=== PATIENT | female | born 1995 | race Caucasian/White ===

== ENCOUNTER 2017-06-29 12:27 | Inpatient (IN) | payer MEDICAID, OTHER ==
[2017-06-29] VITALS (13 sets, daily range): BP systolic 135–176; BP diastolic 85–113; PULSE 82–96; RESP 18–33; TEMP 98.8; Ht 170.2 cm; Wt 69.7 kg
[~2017-06-29] VITALS: Ht 170.2 cm; Wt 69.7 kg
[~2017-06-29 12:27] MED LIST: ENAL5TAB PO
[2017-06-29] MEDS ORDERED: ONDANSETRON 4 MG INJ IV STA (13:16)
[2017-06-29] MEDS ORDERED: morphine 4 MG/ML VIAL IV STA (13:16)
[2017-06-29] MEDS ORDERED: SOD CHLORIDE 0.9% 500 ML IV STA (13:16)
[2017-06-29 13:57] LABS: ADD UMIC YES; UR ASCORBIC ACID NEGATIVE (NEGATIVE); UR BACTERIA FEW /HPF (NONE SEEN); UR BILIRUBIN (Dip) NEGATIVE (NEGATIVE); UR BLOOD (Dip) 2+ mg/dL (NEGATIVE); UR CLARITY CLOUDY (CLEAR); UR COLOR YELLOW (YELLOW); UR GLUCOSE (Dip) NEGATIVE (NEGATIVE); UR KETONES (Dip) NEGATIVE (NEGATIVE); UR LEUKOCYTE ESTERASE (Dip) 1+ Leu/ul (NEGATIVE); UR NITRITE (Dip) NEGATIVE (NEGATIVE); UR RBC 4 /HPF (0-5); UR SQUAMOUS EPITHELIAL CELL MANY /HPF (FEW); UR TOTAL PROTEIN (Dip) 2+ mg/dl (NEGATIVE); UR UROBILINOGEN (Dip) NEGATIVE (NEGATIVE)
[2017-06-29 14:07] LABS: BASOPHILS % 0.1 % (0.0-2.0); EOSINOPHILS % 0.1 % (0.0-7.0); HEMATOCRIT 38.4 % (37.0-47.0); HEMOGLOBIN 12.6 g/dl (12.0-16.0); LYMPHOCYTES # 0.8 10^3/ul (0.8-2.9); LYMPHOCYTES % 5.5 % (18.0-55.0); MEAN CORPUSCULAR HEMOGLOBIN 27.8 pg (29.0-33.0); MEAN CORPUSCULAR HGB CONC 32.8 g/dl (32.0-37.0); MEAN CORPUSCULAR VOLUME 84.8 fl (72.0-104.0); MEAN PLATELET VOLUME 10.6 fl (7.4-10.4); MONOCYTE # 1.3 10^3/ul (0.3-0.9); MONOCYTES % 8.3 % (0.0-13.0); NEUTROPHIL # 13.1 10^3/ul (1.6-7.5); NEUTROPHILS % 85.5 % (30.0-74.0); PLATELET COUNT 189 10^3/UL (140-415); RED BLOOD COUNT 4.53 10^6/ul (4.20-5.40); RED CELL DISTRIBUTION WIDTH 12.7 % (11.5-14.5); WHITE BLOOD COUNT 15.3 10^3/ul (4.8-10.8)
[2017-06-29] MEDS ORDERED: HYDROmorphONE 1 MG/ML SYG IV STA (14:25)
[2017-06-29 14:28] LABS: ALBUMIN 4.8 g/dl (3.3-4.9); ALBUMIN/GLOBULIN RATIO 1.23; BILIRUBIN,INDIRECT 0.5 mg/dl (0-1.1); BILIRUBIN,TOTAL 0.5 mg/dl (0.2-1.3); CALCIUM 9.4 mg/dl (8.4-10.2); CREATININE 1.27 mg/dl (0.44-1.00); POTASSIUM 3.8 mmol/L (3.5-5.1); TOTAL PROTEIN 8.7 g/dl (6.1-8.1)
[2017-06-29] MEDS ORDERED: CEFTRIAXONE 1 GM/50 ML (PMX) 50 ML IVPB ONE (15:30)
--- NOTE | 2017-06-29 15:30 | RADRPT ---
PROCEDURE: CT abdomen and pelvis without intravenous contrast. CLINICAL INDICATION: Abdominal pain TECHNIQUE: CT of the abdomen/pelvis was performed utilizing axial images with reconstructions in s agittal and coronal planes. The administered radiation dose is CTDI 9.51 mGy, DLP 553.53 mGy-cm. One or more of the following dose reduction techniques were used: Automated exposure control, Adjustmen t of the mA and/or kV according to patient size, or Use of iterative reconstruction technique. COMPARISON: There are no similar studies submitted for comparison. FINDINGS: Lung bases: The lung bases are clear, except for mild posterior dependent atelectasis .The partially imaged heart is normal size without pericardial effusion. CT ABDOMEN: Evaluation of the abdominal viscera is limited without intravenous contrast. Gastrointestinal tract: There is no bowel obstruction. The cecum is low lying in the right lower janis drant/right pelvis and there is mild cecal wall thickening with adjacent inflammatory change. There is no pneumoperitoneum. Liver: The liver is mildly enlarged, measuring up to 18.8 cm at the right midclavicular line. The un enhanced hepatic attenuation is within normal limits. There is no evidence of intrahepatic biliary ductal dilatation. Gallbladder: The gallbladder is grossly unremarkable. Pancreas: The pancreas is grossly unremarkable. Spleen: The spleen is normal in size. 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 A partially exoph ytic 9 mm low attenuation lesion arising from the inferior pole the right kidney may represent a sma ll cyst, but is too small to definitively characterize. A punctate calcification is seen within the interpolar right kidney posteriorly. The left kidney is slightly large in size, measuring up to 10 .5 cm in length, likely compensatory given in the hypoplastic right kidney. There is no evidence of hydronephrosis. No left renal calcification is seen. Adrenal glands: The bilateral adrenal glands are unremarkable. Retroperitoneum: There is no retroperitoneal adenopathy.The aorta is normal in caliber. CT PELVIS: Pelvic organs: The uterus contains an intrauterine device and is not well evaluated without intraven ous contrast. In the right lower quadrant/adnexal region, there is a tubular shaped cystic structur e measuring 1.7 cm AP oblique x 1.5 cm TR oblique x 6.4 cm CC oblique and containing a densely calci fied structure measuring up to approximately 2.0 cm (series 3, image 138). There is diffuse edema/in flammatory change within the pelvis and within the lower abdominal mesentery. There is a small mode rate amount of pelvic free fluid measuring slightly higher than simple ascites in attenuation. There are increased number of prominent, but sub centimeter right lower quadrant/right pelvic lymph nodes. Bladder: The urinary bladder is under distended. There is mild diffuse bladder wall thickening whic h may be attributable to underdistension. However, a component of cystitis cannot be excluded. Osseous structures: No destructive lytic or blastic osseous lesion is identified. IMPRESSION: 1. Right lower quadrant/right adnexal fluid containing tubular shaped structure measuring up to 1.7 cm and containing a densely calcified structure which measures up to approximately 2.0 cm. There is mild wall thickening of a low lying cecum in the adjacent right lower quadrant. There is diffuse ed calli/inflammatory change within the pelvis and within the lower abdominal mesentery. There is a smal l to moderate amount of pelvic free fluid measuring slightly higher than simple ascites in attenuati on. Although this tubular structure cannot be definitively connected to the cecum, the findings are favored to represent a ruptured appendicitis with appendicolith. A ruptured right ovarian dermoid c yst is also a possibility, but considered less likely. Pelvic ultrasound may help clarify. 2. Hypoplastic right kidney, detailed above. 3. Mild hepatomegaly. 4. Above impression was discussed with JUANITA Santos ([facility]) via phone at 15:27 06/29/2017. RPTAT: EE Physician Radha Date Time Electronically viewed and signed by Physician Radha on 06/29/2017 15:30 LIVE/
[2017-06-29] MEDS ORDERED: SOD CHLORIDE 0.9% 1,000 ML IV STA (15:35)
[2017-06-29] MEDS ORDERED: IODIXANOL LOCM 100 ML BTL ONE (15:42)
[2017-06-29] MEDS ORDERED: SOD CHLORIDE 0.9% 100 ML ONE (15:42)
--- NOTE | 2017-06-29 16:28 | RADRPT ---
PROCEDURE: CT abdomen and pelvis with IV contrast CLINICAL INDICATION: Abdominal pain TECHNIQUE: Axial images were obtained through the abdomen and pelvis after the IV administration o f 90 cc Visipaque 320 IV contrast. Coronal and sagittal reconstructions were obtained. Automated ex posure control was utilized. DLP = 409.8 mGy-cm. CTDiol= 6.8 mGy. One or more of the following post reduction techniques were used: - Automated exposure control. - Adjustment of the mA and/or Kv according to patient's size. - Use of iterative reconstruction technique COMPARISON: Noncontrast CT June 29, 2017 at 02:16 p.m. FINDINGS: Dependent, subsegmental atelectasis is noted in the visualized lower lungs. Heart size is within no rmal limits. The liver, gallbladder, pancreas, spleen and adrenals are unremarkable. The right kidney is small and atrophic appearing. Multiple small cysts are identified in the right kidney. The kidneys demonstrate symmetric enhancement. No obstructive uropathy is identified. The bladder is filled with a [id number]-[id number] amount of urine. T-shaped IUD is identified in the endometrium, but appears low-lying and rotated. Air and stool are seen scattered within the colon. A 1.9 cm in diameter tubular, fluid-filled stru cture is seen adjacent to the base of the cecum and contains a large calcification. Fat stranding a nd inflammatory change is seen surrounding this structure. A 1.8 cm rim enhancing cystic structure is identified in the right adnexa. Small to moderate amount of free fluid is identified in the post erior mid and lower pelvis. No dilated loops of small bowel are observed. The stomach and duodenum are unremarkable. No intra-abdominal or pelvic lymphadenopathy is observed. The arterial vasculature demonstrates a n ormal appearance. Osseous structures are intact and normal-appearing. Subcutaneous and muscular soft tissues surround ing the abdomen and pelvis are unremarkable. IMPRESSION: 1.9 cm in diameter fluid filled, tubular structure containing a large calcification adjacent to the base of the cecum with a large amount of surrounding inflammatory change. Findings are compatible w ith appendicitis. The connection of the appendix to the base of the cecum remains poorly visualized and is likely decompressed due to its position above the level of the obstructing appendicolith. 1.8 cm rim enhancing cystic structure in the right adnexa, adjacent to the dilated appendix. This c ould reflect a right ovarian cyst. A small abscess secondary to ruptured appendicitis cannot defini tely be excluded. Further characterization with pelvic ultrasound could be helpful. Small to moderate amount of free fluid in the mid and lower pelvis. IUD in the endometrial canal. The IUD appears low lying and rotated. Further characterization with pelvic ultrasound should be considered. RPTAT: AA .Geovany Weems MD, MD Date Time Electronically viewed and signed by .Geovany Weems MD, on 06/29/2017 16:27 .P/
--- NOTE | 2017-06-29 16:45 | ERA ---
ER Documentation Chief Complaint Date/Time DATE: 06/29/17 TIME: 16:41 Chief Complaint abdominal pain x 2 days HPI Patient is a 21-year-old female who presents with abdominal pain that she has had for 2 days. The pain started in the epigastric region but has migrated downwards to the right lower quadrant. She also admits to dysuria but denies hematuria and increased urinary frequency. Denies any change with food. The pain is 10 out of 10 and sharp. She denies fever. Denies any nausea or vomiting or diarrhea. Last menstrual period was 2 weeks ago. She states she has a history of hypertension but no longer takes medications for the high blood pressure. She denies any past surgeries. ROS All systems reviewed and are negative except as per history of present illness. Medications Home Meds Reported Medications Enalapril Maleate* (Enalapril Maleate*) 5 Mg Tablet, 5 MG PO BID 07/05/13 Allergies Allergies: Coded Allergies: No Known Allergy (Unverified , 07/05/13) PMhx/Soc History of Surgery: No Anesthesia Reaction: No Hx Neurological Disorder: No Hx Respiratory Disorders: No Hx Cardiac Disorders: No Hx Psychiatric Problems: No Hx Miscellaneous Medical Probl: Yes (HTN) Hx Alcohol Use: No Hx Substance Use: No Hx Tobacco Use: No Smoking Status: Never smoker FmHx Family History: No diabetes Physical Exam Vitals Vital Signs Date Time Temp Pulse Resp B/P Pulse Ox O2 Delivery O2 Flow Rate FiO2 06/29/17 15:08 97.9 72 18 135/80 100 Room Air 06/29/17 14:26 80 20 177/116 98 Room Air 06/29/17 12:36 99.7 122 18 168/122 99 Physical Exam INITIAL VITAL SIGNS: Reviewed by me GENERAL: Awake, alert and oriented x 4, well appearing, nontoxic, speaking in full sentences. No acute distress HEAD: Atraumatic EYES: EOMI. PERRL. NECK: Supple. No masses. Full range of motion. No meningismus. No midline tenderness. RESPIRATORY: Clear to auscultation bilaterally. Symmetric chest wall rise. No wheezing or rales. No accessory muscle use. CV: Regular rate and rhythm. No murmurs, rubs, or gallops. ABDOMEN: Soft, non-distended. . Negative [place]. Positive McBurneys point tenderness. No CVA tenderness bilaterally. No guarding. No rebound. : Deffered. Result Diagram: 06/29/17 1350 06/29/17 1350 Results 24 hrs Laboratory Tests Test 06/29/17 13:28 06/29/17 13:50 Urine Color YELLOW Urine Clarity CLOUDY Urine pH 6.0 Urine Specific [place] 1.020 Urine Ketones NEGATIVEmg/dL Urine Nitrite NEGATIVEmg/dL Urine Bilirubin NEGATIVEmg/dL Urine Urobilinogen NEGATIVEmg/dL Urine Leukocyte Esterase 1+Rita/ul Urine Microscopic RBC 4/HPF Urine Microscopic WBC 22/HPF Urine Squamous Epithelial Cells MANY/HPF Urine Bacteria FEW/HPF Urine Hemoglobin 2+mg/dL Urine Glucose NEGATIVEmg/dL Urine Total Protein 2+mg/dl White Blood Count 15.310^3/ul Red Blood Count 4.5310^6/ul Hemoglobin 12.6g/dl Hematocrit 38.4% Mean Corpuscular Volume 84.8fl Mean Corpuscular Hemoglobin 27.8pg Mean Corpuscular Hemoglobin Concent 32.8g/dl Red Cell Distribution Width 12.7% Platelet Count 70179^3/UL Mean Platelet Volume 10.6fl Neutrophils % 85.5% Lymphocytes % 5.5% Monocytes % 8.3% Eosinophils % 0.1% Basophils % 0.1% Nucleated Red Blood Cells % 0.0/100WBC Neutrophils # 13.110^3/ul Lymphocytes # 0.810^3/ul Monocytes # 1.310^3/ul Eosinophils # 0.010^3/ul Basophils # 0.010^3/ul Nucleated Red Blood Cells # 0.010^3/ul Sodium Level 143mmol/L Potassium Level 3.8mmol/L Chloride Level 100mmol/L Carbon Dioxide Level 26mmol/L Anion Gap 21 Blood Urea Nitrogen 15mg/dl Creatinine 1.27mg/dl Glucose Level 97mg/dl Calcium Level 9.4mg/dl Total Bilirubin 0.5mg/dl Direct Bilirubin 0.00mg/dl Indirect Bilirubin 0.5mg/dl Aspartate Amino Transf (AST/SGOT) 19IU/L Alanine Aminotransferase (ALT/SGPT) 22IU/L Alkaline Phosphatase 78IU/L Total Protein 8.7g/dl Albumin 4.8g/dl Globulin 3.90g/dl Albumin/Globulin Ratio 1.23 Lipase 26U/L Current Medications Medications (Trade) Dose Ordered Sig/Precious Route PRN Reason Start Time Stop Time Status Last Admin Dose Admin Sodium Chloride (NS) 500 ml @ 500 mls/hr Q1H STAT IV 06/29/17 13:16 06/29/17 14:15 DC 06/29/17 13:40 Morphine Sulfate (morphine) 4 mg ONCE STAT IV 06/29/17 13:16 06/29/17 13:17 DC 06/29/17 13:39 Ondansetron HCl (Zofran Inj) 4 mg ONCE STAT IV 06/29/17 13:16 06/29/17 13:17 DC 06/29/17 13:39 Clonidine (Catapres) 0.1 mg ONCE ONCE PO 06/29/17 13:30 06/29/17 13:31 DC 06/29/17 13:52 Hydromorphone HCl 1 mg 1 mg ONCE STAT IV 06/29/17 14:25 06/29/17 14:26 DC 06/29/17 14:31 Ceftriaxone Sodium 50 ml @ 100 mls/hr ONCE ONCE IVPB 06/29/17 15:30 06/29/17 15:59 DC 06/29/17 15:55 Sodium Chloride (NS) 1,000 ml @ 1,000 mls/hr Q1H STAT IV 06/29/17 15:35 06/29/17 16:34 DC 06/29/17 15:55 IV Flush 10 ml 10 ml STK-MED ONCE .ROUTE 06/29/17 15:42 06/29/17 15:43 DC Sodium Chloride (NS) 100 ml @ ud STK-MED ONCE .ROUTE 06/29/17 15:42 06/29/17 15:43 DC Iodixanol (Visipaque Locm) 100 ml STK-MED ONCE .ROUTE 06/29/17 15:42 06/29/17 15:43 DC Procedures/MDM This is a 21-year-old female who has right lower quadrant tenderness. The differential diagnosis includes but is not limited to appendicitis, cholelithiasis, cholecystitis, pancreatitis, hepatitis, gastritis, peptic ulcer disease, bowel obstruction, diverticulitis, renal disease including stones, torsion, AAA, pyelonephritis, and others. She has temperature of 99.7 and is tachycardic at 122. She also has elevated blood pressure 168/122. Her pain was controlled with IV morphine and Zofran and then later Dilaudid. She has elevated white blood cell count greater than 15 and her urine shows evidence of urinary tract infection. Creatinine is also elevated 1.27. I reviewed these findings with Dr. Ríos who recommended giving the patient Rocephin which she was given. CT scan shows evidence of appendicitis. Patient was started on Flagyl and I informed Dr. Ríos regarding the findings. Patient will be admitted. Departure Diagnosis: Primary Impression: Appendicitis Additional Impressions: Urinary tract infection Hypertensive urgency Condition: Serious DARRON BARAJAS PA-C Jun 29, 2017 16:45
--- NOTE | 2017-06-29 17:03 | EN ---
Date/Time of Note Date/Time of Note DATE: 06/29/17 TIME: 17:03 ER Progress Note I have seen and evaluated this patient with ourr physician financial administrative assistant. This patient is suffering from appendicitis with no signs of a ruptured appendix on CT of the abdomen and pelvis. The patient was given Rocephin and Flagyl here in the emergency room. I have contacted our admitting physician, Dr. Liu who accepts this patient. This patient will be taken to the operating room by our general surgeon Dr. Yanez. Critical Care: Time: 34 minutes Treatments/Evaluations: Close monitoring and treatment of unstable vital signs, cardiorespiratory, and neurologic status, while maintaining tight balance of fluid, respiratory, and cardiac interventions. SUKH SOMMER DO Jun 29, 2017 17:03
[2017-06-29] MEDS ORDERED: SOD CHLORIDE 0.9% 1,000 ML IV SCH (17:04)
--- NOTE | 2017-06-29 17:10 | RADRPT ---
PROCEDURE: US Pelvis CLINICAL INDICATION: pelvic pain, right side TECHNIQUE: Multiple sonographic images of the pelvis were obtained utilizing a transabdominal and endovaginal technique. The images were reviewed on a PACS workstation. COMPARISON: CT abdomen/pelvis from 06/29/2017 LMP: 06/14/2017 FINDINGS: The uterus measures 6.3 x 3.2 x 4.2 cm. The endometrial echo complex measures 6 mm in thickness. A n intrauterine device is noted with its superior margin at the level of the lower uterine segment. There is no evidence of an intrauterine or abnormal vascularity in the endometrium. The right ovary measures 4.1 x 2.9 x 2.8 cm. The left ovary measures 2.0 x 1.5 x 1.9 cm. There is no rmal vascular flow in both ovaries. There is a tubular cystic and solid structure in the right adnexa measuring up to 4.8 x 1.6 cm with an echogenic lesion with posterior acoustic shadowing seen within it measuring up to 1.9 cm. There is moderate free fluid in the pelvis. IMPRESSION: Tubular cystic and solid lesion in the right adnexa measuring up to 4.8 x 1.6 cm with a 1.9 cm echog enic lesion within it. Findings may represent hematosalpinx or pyosalpinx although rupture of a tub al ectopic is not excluded, particularly the presence of moderate pelvic free fluid. Claudy elation with a beta HCG level is recommended. Another possibility is that this lesion is an inflamed appendix with the echogenic lesion within it representing an appendicolith. Clinical correlation i s recommended. An intrauterine device is noted in a low position with its superior margin at the level of the lower uterine segment. These findings were discussed with Awais Degroot Pa-c) over the phone on 06/29/2017 at 5:09 PM . RPTAT: EE Physician Elaine Date Time Electronically viewed and signed by Wilber Savage Physician on 06/29/2017 17:09 /
[2017-06-29] MEDS ORDERED: ONDANSETRON 4 MG INJ IV PRN ×3 (17:30→19:30)
[2017-06-29] MEDS ORDERED: ACETAMINOPHEN 325 MG TAB PO PRN ×2 (17:30→19:30)
[2017-06-29] MEDS ORDERED: BUPIVACAINE 0.25%/EPI (SDV) 10 ML INJ ONE (17:30)
[2017-06-29] MEDS ORDERED: FENTAnyl 50 MCG/ML VIAL ONE (17:40)
[2017-06-29] MEDS ORDERED: MIDAZOLAM 1 MG/ML 2 ML INJ ONE (17:40)
[2017-06-29] MEDS ORDERED: PROPOFOL 20 ML ONE ×2 (17:40→19:06)
[2017-06-29] MEDS ORDERED: ROCURONIUM 50 MG INJ ONE (17:40)
[2017-06-29] MEDS ORDERED: ROPIVACAINE 0.2% 20 ML VIAL ONE (17:40)
--- NOTE | 2017-06-29 18:04 | CONS ---
Date/Time of Note Date/Time of Note DATE: 06/29/17 TIME: 18:00 Assessment/Plan Assessment/Plan Chief Complaint/Hosp Course 21-year-old female with clinical signs and symptoms most consistent with acute appendicitis. This has been confirmed via CT scan. * Continue nothing by mouth * Broad-spectrum intravenous antibiotics * IV fluid hydration * Pain control Definitive treatment will consist of laparoscopic appendectomy; possible open. This has been explained to the patient along with all risks and benefits of the procedure. She fully understands and is agreeable to the treatment plan as outlined. Informed consent will be obtained and the patient will be scheduled for laparoscopic appendectomy; possible open Problems: Consultation Date/Type/Reason Admit Date/Time Jun 29, 2017 at 17:04 Date of Consultation: Jun 29, 2017 Type of Consultation: GENERAL SURGERY Reason for Consultation Abdominal pain Hx of Present Illness The patient is a 21-year-old female with a history of hypertension who presented to the emergency room complaining of a 2 day history of abdominal pain. The pain initially occurred in the periumbilical area then migrated towards the right lower quadrant. She denies any nausea/vomiting, she does report constipation. There has been no fever/chills. She denies any similar episodes of pain in the past. She does report some dysuria. A 14 point review of systems was conducted and was negative except for that which is mentioned in HPI Past Medical History Medical History: hypertension Past Surgical History Past Surgical Hx: no surgical history Family History Significant Family History: no pertinent family hx Social History Alcohol Use: occasionally Smoking Status: Never smoker Exam/Review of Systems Vital Signs Vitals Vital Signs Date Time Temp Pulse Resp B/P Pulse Ox O2 Delivery O2 Flow Rate FiO2 06/29/17 17:33 98.8 88 19 158/98 100 Room Air Exam GENERAL: Awake, alert, oriented x 3. In moderate amount of discomfort secondary to abdominal pain. SKIN: No jaundice. HEENT: PERRLA, EOMI, No Scleral Icterus NECK: Supple without JVD CARDIOVASCULAR: S1S2, regular rate and rhythm. No murmurs appreciated. RESPIRATORY: Clear to auscultation bilaterally. ABDOMEN: Soft, bowel sounds present, there is slight distention of the lower abdomen. There is right lower quadrant tenderness to palpation with localized rebound. There is a positive Rovsing sign. EXTREMITIES: Free range of motion x 4. No cyanosis, edema, or clubbing. NEUROLOGIC: Cranial nerves II-XII are intact. Sensation is intact grossly. Results Result Diagram: 06/29/17 1350 06/29/17 1350 Results 24 hrs Laboratory Tests Test 06/29/17 13:28 06/29/17 13:50 Urine Color YELLOW Urine Clarity CLOUDY A Urine pH 6.0 Urine Specific [place] 1.020 Urine Ketones NEGATIVE Urine Nitrite NEGATIVE Urine Bilirubin NEGATIVE Urine Urobilinogen NEGATIVE Urine Leukocyte Esterase 1+ H Urine Microscopic RBC 4 Urine Microscopic WBC 22 H Urine Squamous Epithelial Cells MANY A Urine Bacteria FEW A Urine Hemoglobin 2+ H Urine Glucose NEGATIVE Urine Total Protein 2+ H White Blood Count 15.3 H Red Blood Count 4.53 Hemoglobin 12.6 Hematocrit 38.4 Mean Corpuscular Volume 84.8 Mean Corpuscular Hemoglobin 27.8 L Mean Corpuscular Hemoglobin Concent 32.8 Red Cell Distribution Width 12.7 Platelet Count 189 Mean Platelet Volume 10.6 H Neutrophils % 85.5 H Lymphocytes % 5.5 L Monocytes % 8.3 Eosinophils % 0.1 Basophils % 0.1 Nucleated Red Blood Cells % 0.0 Neutrophils # 13.1 H Lymphocytes # 0.8 Monocytes # 1.3 H Eosinophils # 0.0 Basophils # 0.0 Nucleated Red Blood Cells # 0.0 Sodium Level 143 Potassium Level 3.8 Chloride Level 100 Carbon Dioxide Level 26 Anion Gap 21 H Blood Urea Nitrogen 15 Creatinine 1.27 H Glucose Level 97 Calcium Level 9.4 Total Bilirubin 0.5 Direct Bilirubin 0.00 Indirect Bilirubin 0.5 Aspartate Amino Transf (AST/SGOT) 19 Alanine Aminotransferase (ALT/SGPT) 22 Alkaline Phosphatase 78 Total Protein 8.7 H Albumin 4.8 Globulin 3.90 H Albumin/Globulin Ratio 1.23 Lipase 26 Medications Medications Current Medications Sodium Chloride (NS) 1,000 ml @ 125 mls/hr Q8H IV ; Start 06/29/17 at 17:04; Stop 06/30/17 at 01:03 Procedures Procedures PROCEDURE: CT abdomen and pelvis without intravenous contrast. CLINICAL INDICATION: Abdominal pain TECHNIQUE: CT of the abdomen/pelvis was performed utilizing axial images with reconstructions in sagittal and coronal planes. The administered radiation dose is CTDI 9.51 mGy, DLP 553.53 mGy-cm. One or more of the following dose reduction techniques were used: Automated exposure control, Adjustment of the mA and/or kV according to patient size, or Use of iterative reconstruction technique. COMPARISON: There are no similar studies submitted for comparison. FINDINGS: Lung bases: The lung bases are clear, except for mild posterior dependent atelectasis .The partially imaged heart is normal size without pericardial effusion. CT ABDOMEN: Evaluation of the abdominal viscera is limited without intravenous contrast. Gastrointestinal tract: There is no bowel obstruction. The cecum is low lying in the right lower quadrant/right pelvis and there is mild cecal wall thickening with adjacent inflammatory change. There is no pneumoperitoneum. Liver: The liver is mildly enlarged, measuring up to 18.8 cm at the right midclavicular line. The unenhanced hepatic attenuation is within normal limits. There is no evidence of intrahepatic biliary ductal dilatation. Gallbladder: The gallbladder is grossly unremarkable. Pancreas: The pancreas is grossly unremarkable. Spleen: The spleen is normal in size. 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 A partially exophytic 9 mm low attenuation lesion arising from the inferior pole the right kidney may represent a small cyst, but is too small to definitively characterize. A punctate calcification is seen within the interpolar right kidney posteriorly. The left kidney is slightly large in size , measuring up to 10.5 cm in length, likely compensatory given in the hypoplastic right kidney. There is no evidence of hydronephrosis. No left renal calcification is seen. Adrenal glands: The bilateral adrenal glands are unremarkable. Retroperitoneum: There is no retroperitoneal adenopathy.The aorta is normal in caliber. CT PELVIS: Pelvic organs: The uterus contains an intrauterine device and is not well evaluated without intravenous contrast. In the right lower quadrant/adnexal region, there is a tubular shaped cystic structure measuring 1.7 cm AP oblique x 1.5 cm TR oblique x 6.4 cm CC oblique and containing a densely calcified structure measuring up to approximately 2.0 cm (series 3, image 138). There is diffuse edema/inflammatory change within the pelvis and within the lower abdominal mesentery. There is a small moderate amount of pelvic free fluid measuring slightly higher than simple ascites in attenuation. There are increased number of prominent, but sub centimeter right lower quadrant /right pelvic lymph nodes. Bladder: The urinary bladder is under distended. There is mild diffuse bladder wall thickening which may be attributable to underdistension. However, a component of cystitis cannot be excluded. Osseous structures: No destructive lytic or blastic osseous lesion is identified. IMPRESSION: 1. Right lower quadrant/right adnexal fluid containing tubular shaped structure measuring up to 1.7 cm and containing a densely calcified structure which measures up to approximately 2.0 cm. There is mild wall thickening of a low lying cecum in the adjacent right lower quadrant. There is diffuse edema/ inflammatory change within the pelvis and within the lower abdominal mesentery. There is a small to moderate amount of pelvic free fluid measuring slightly higher than simple ascites in attenuation. Although this tubular structure cannot be definitively connected to the cecum, the findings are favored to represent a ruptured appendicitis with appendicolith. A ruptured right ovarian dermoid cyst is also a possibility, but considered less likely. Pelvic ultrasound may help clarify. 2. Hypoplastic right kidney, detailed above. 3. Mild hepatomegaly. 4. Above impression was discussed with JUANITA Santos ([facility]) via phone at 15:27 06/29/2017. RPTAT: EE Physician Radha Date Time Electronically viewed and signed by Physician Radha on 06/29/2017 15: 30 RC/ CC: DARRON BARAJAS PA-C, MICHAEL A. MD Jun 29, 2017 18:04
[2017-06-29] MEDS ORDERED: LIDOCAINE 2% (SDV) 5 ML INJ ONE ×2 (18:59→19:06)
[2017-06-29] MEDS ORDERED: KETOROLAC 30 MG INJ IV PRN ×2 (19:00→19:30)
[2017-06-29] MEDS ORDERED: GLYCOPYRROLATE 0.4 MG INJ ONE (19:00)
[2017-06-29] MEDS ORDERED: DIPHENHYDRAMINE 50 MG INJ IV PRN (19:00)
[2017-06-29] MEDS ORDERED: morphine (1 MG/ML) 10ML SYRINGE IV PRN (19:00)
[2017-06-29] MEDS ORDERED: MEPERIDINE 25 MG INJ IV PRN (19:00)
[2017-06-29] MEDS ORDERED: NEOSTIGMINE 3 MG/3 ML SYRINGE ONE (19:00)
[2017-06-29] MEDS ORDERED: FENTAnyl 50 MCG/ML VIAL IV PRN (19:00)
[2017-06-29] MEDS ORDERED: ONDANSETRON 4 MG INJ ONE (19:05)
--- NOTE | 2017-06-29 19:14 | OPR ---
Date/Time of Note Date/Time of Note DATE: 06/29/17 TIME: 19:10 Operative Report Procedure Date: Jun 29, 2017 Preoperative Diagnosis Acute appendicitis with localized peritonitis Postoperative Diagnosis Acute appendicitis with localized peritonitis Operation Performed Laparoscopic appendectomy Surgeon: MARIAMA KINNEY MD Anesthesia: general Anesthesiologist: LUZMA HUITRON MD Estimated Blood Loss: minimal Specimens Appendix Complications: None Pt Condition Post Procedure: stable Disposition: PACU Indications Patient is a 21-year-old female who presented to the emergency room complaining of a 2 day history of right lower quadrant abdominal pain. The patient had clinical signs and symptoms of acute appendicitis which was confirmed via CT scan. She was therefore admitted, kept nothing by mouth, started on broad- spectrum intravenous antibiotics and scheduled for laparoscopic appendectomy; possible open as definitive treatment. All risks and benefits of the procedure including but not limited to: Wound infection, excessive bleeding, injury to intra-abdominal organs, conversion to open procedure etc. were explained to the patient in full detail. The patient fully understood and wished to proceed with the procedure. Informed consent was therefore obtained. Operative\Procedure Findings Nonperforated acute appendicitis Procedure Description The patient was brought to the operating room and placed supine on the operating table. Bilateral sequential compression devices were placed on both lower extremities. Patient had been given a dose of broad-spectrum intravenous antibiotics while in the emergency room. After the induction of smooth general endotracheal anesthesia the patient's abdomen was prepped and draped in the standard surgical fashion. A 5 mm incision was made in the inferior umbilicus and a Veress needle was used to access the intra-abdominal cavity atraumatically. Pneumoperitoneum was then obtained and the Veress needle was exchanged for a 5 mm trocar through which a 5 mm laparoscope was placed. Two further working ports were then placed, a 12 mm port in the midline suprapubic area and another 5 mm port midway between the suprapubic and umbilical port sites. All port sites were anesthetized with 0.25% Marcaine with epinephrine prior to incision. Diagnostic laparoscopy showed murky fluid in the patient's pelvis. This was suctioned out using a pool sucker. Attention was then turned towards the right lower quadrant. The omentum was draped over the cecum in the area of the appendix. It was bluntly dissected off swept up into the upper abdomen. The appendix was then identified adhered to the lateral pelvic sidewall. Using atraumatic graspers it was bluntly dissected off. Using atraumatic graspers, the appendix was grasped and retracted superiorly and medially exposing the mesoappendix. The appendix appeared erythematous and inflamed consistent with acute appendicitis, but not perforated. Using a [place] dissector a window was made between the mesoappendix and the appendiceal base. The appendix was then transected at its base using a firing of the laparoscopic ISABELLA stapler. Mesoappendix was then taken using the harmonic scalpel. Once completely free the appendix was placed in an Endo Catch bag and withdrawn through the suprapubic port site and passed off the field as specimen. Hemostasis was then inspected for and noted to be total. The abdomen was then irrigated with copious amounts of warm normal saline and the irrigant returned crystal clear. Pneumoperitoneum was then released and all trochars were withdrawn under direct vision. The fascia of the suprapubic port site was reapproximated using a 0 Vicryl suture in a [id number] fashion. The subcutaneous tissues were irrigated with more warm normal saline and further local anesthesia was applied around the skin of the incision sites. The skin was then reapproximated using 4-0 Monocryl sutures in subcuticular fashion. The incisions were cleaned and Dermabond was applied and the patient was awoken from anesthesia and transported to the recovery room in stable condition. All counts were correct at the end of the case x 2. MARIAMA KINNEY MD Jun 29, 2017 19:14
[2017-06-29] MEDS ORDERED: morphine 4 MG/ML VIAL IV PRN (19:30)
[2017-06-29] MEDS ORDERED: IBUPROFEN 600 MG TAB PO PRN (19:30)
[2017-06-29] MEDS ORDERED: HYDROCODONE/APAP (5/325) TAB PO PRN (19:30)
[2017-06-29] MEDS: DEXTROSE 5%-0.45% NACL 1,000 ML IV SCH (20:48)
[2017-06-29] MEDS: AMPICILLIN/SULB 3 GM/NS (PMX) 100 ML IVPB SCH (20:49)
[2017-06-29] MEDS: DOCUSATE SODIUM 100 MG CAP PO SCH (20:50)
[2017-06-30 02:00] VITALS: BP 133/85; RESP 18
[2017-06-30] MEDS: AMPICILLIN/SULB 3 GM/NS (PMX) 100 ML IVPB SCH ×3 (03:08→15:38)
[2017-06-30] MEDS: HYDROCODONE/APAP (5/325) TAB PO PRN ×3 (03:08→22:13)
[2017-06-30] MEDS: DEXTROSE 5%-0.45% NACL 1,000 ML IV SCH ×4 (03:30→19:30)
[2017-06-30 05:44] LABS: BASOPHILS % 0.2 % (0.0-2.0); HEMATOCRIT 33.4 % (37.0-47.0); HEMOGLOBIN 11.2 g/dl (12.0-16.0); LYMPHOCYTES # 0.9 10^3/ul (0.8-2.9); LYMPHOCYTES % 8.3 % (18.0-55.0); MEAN CORPUSCULAR HEMOGLOBIN 28.6 pg (29.0-33.0); MEAN CORPUSCULAR HGB CONC 33.5 g/dl (32.0-37.0); MEAN CORPUSCULAR VOLUME 85.2 fl (72.0-104.0); MEAN PLATELET VOLUME 10.4 fl (7.4-10.4); MONOCYTE # 0.8 10^3/ul (0.3-0.9); MONOCYTES % 6.8 % (0.0-13.0); NEUTROPHIL # 9.3 10^3/ul (1.6-7.5); NEUTROPHILS % 84.4 % (30.0-74.0); PLATELET COUNT 157 10^3/UL (140-415); RED BLOOD COUNT 3.92 10^6/ul (4.20-5.40); RED CELL DISTRIBUTION WIDTH 13.3 % (11.5-14.5)
[2017-06-30 06:35] LABS: CALCIUM 8.5 mg/dl (8.4-10.2); CREATININE 1.22 mg/dl (0.44-1.00); POTASSIUM 3.7 mmol/L (3.5-5.1)
--- NOTE | 2017-06-30 06:40 | HP ---
Date/Time of Note Date/Time of Note DATE: 06/30/17 TIME: 06:30 Assessment/Plan VTE Prophylaxis VTE Prophylaxis Intervention: SCD's Lines/Catheters IV Catheter Type (from Nrsg): Peripheral IV Assessment/Plan Assessment/Plan 1. Acute appendicitis with localized peritonitis - s/p laparoscopic appendicitis - cont abx and pain mgmt - advance diet as tolerated 2. Sepsis, as evidenced by leukocytosis and tachycardia: 2/2 above and UTI - cont abx f/u future results 3. UTI - cont abx. f/u urine cx result 4. KODAK: - IVF - Nephrology consult HPI/ROS Admit Date/Time Admit Date/Time Jun 29, 2017 at 17:04 Hx of Present Illness This is a 21 yo female with hx of HTN who presented to ER c/o abd pain x 2. She is now s/p Laparoscopic appendectomy and post-op diagnosis is Acute appendicitis with localized peritonitis. Except occasional pain, pt is feeling well. Denied chest pain or SOB. . PMH/Family/Social Past Medical History Medical History: hypertension Past Surgical History Past Surgical Hx: no surgical history Social History Alcohol Use: occasionally Smoking Status: Never smoker Drug Use: none Exam/Review of Systems Vital Signs Vitals Vital Signs Date Time Temp Pulse Resp B/P Pulse Ox O2 Delivery O2 Flow Rate FiO2 06/30/17 02:00 100.0 105 18 133/85 100 06/29/17 19:50 Room Air Intake and Output 06/29/17 06/29/17 06/30/17 15:00 23:00 07:00 Intake Total 1500 ml 200 ml Output Total 5 ml Balance 1495 ml 200 ml Exam Constitutional: alert, oriented, well developed Head: atraumatic, normocephalic Eyes: EOMI, PERRL Respiratory: clear to auscultation, normal air movement Cardiovascular: other (tachycadic with regular rhythm) Gastrointestinal: soft, surgical scars, tender Extremities: normal pulses Labs Result Diagram: 06/30/17 0510 06/29/17 1350 Medications Medications Current Medications Ampicillin Sodium/ Sulbactam Sodium (Unasyn 3gm/NS (Pmx)) 100 ml @ 200 mls/hr Q6H IVPB Last administered on 06/30/17t 03:08; Admin Dose 200 MLS/HR; Start 06/29 at 21:00; Stop 06/30/17 at 20:59 Morphine Sulfate (morphine) 2 mg Q4 PRN IV PAIN LEVEL 6-10 Last administered on 06/29/17 20:51; Admin Dose 2 MG; Start 06/29/17 at 19:30 Acetaminophen/ Hydrocodone Bitart ([place] (5/325)) 1 tab Q6H PRN PO PAIN LEVEL 6 -10; Start 06/29/17 at 19:30 Ketorolac Tromethamine (Toradol) 30 mg Q6H PRN IV PAIN; Start 06/29/17 at 19:30 ; Stop 07/02/17 at 19:29 Acetaminophen (Tylenol Tab) 650 mg Q6H PRN PO PAIN AND OR ELEVATED TEMP Last administered on 06/30/17 01:18; Admin Dose 650 MG; Start 06/29/17 at 19:30 Ibuprofen (Motrin) 600 mg Q6H PRN PO PAIN LEVEL 1-5; Start 06/29/17 at 19:30 Ondansetron HCl (Zofran Inj) 4 mg Q6H PRN IV NAUSEA AND/OR VOMITING; Start 06/29 at 19:30 Docusate Sodium (Colace) 100 mg BID PO Last administered on 06/29/17 20:50; Admin Dose 100 MG; Start 06/29/17 at 21:00 Acetaminophen/ Hydrocodone Bitart 2 tab 2 tab Q4H PRN PO MODERATE PAIN LEVEL 4- 6 Last administered on 06/30/17 03:08; Admin Dose 2 TAB; Start 06/29/17 at 19:30 Dextrose/Sodium Chloride (D5-1/2ns) 1,000 ml @ 125 mls/hr Q8H IV Last administered on 06/29/17 20:48; Admin Dose 125 MLS/HR; Start 06/29/17 at 19:30 HOLDEN MONTOYA MD Jun 30, 2017 06:40
[2017-06-30 07:59] VITALS: BP 138/97; RESP 20
[2017-06-30] MEDS: DOCUSATE SODIUM 100 MG CAP PO SCH ×2 (09:56→22:12)
--- NOTE | 2017-06-30 10:14 | PN ---
Date/Time of Note Date/Time of Note DATE: 06/30/17 TIME: 10:10 Assessment/Plan Lines/Catheters IV Catheter Type (from Nrsg): Peripheral IV Assessment/Plan Assessment/Plan 21-year-old female status post laparoscopic appendectomy postop day #1 * Out of bed/incentive spirometry * Pain control * Surgically stable for discharge home once medically cleared on oral antibiotics and pain control * Follow-up in office in 1-2 weeks. Subjective 24 Hr Interval Summary Doing okay. Pain is adequately controlled. Afebrile. Exam/Review of Systems Vital Signs Vitals Vital Signs Date Time Temp Pulse Resp B/P Pulse Ox O2 Delivery O2 Flow Rate FiO2 06/30/17 07:59 98.6 83 20 138/97 97 06/29/17 19:50 Room Air Intake and Output 06/29/17 06/29/17 06/30/17 15:00 23:00 07:00 Intake Total 1500 ml 800 ml Output Total 5 ml 800 ml Balance 1495 ml 0 ml Exam Free Text/Dictation GENERAL: Awake, alert, oriented x 3. No acute distress CARDIOVASCULAR: S1S2, regular rate and rhythm. No murmurs appreciated. RESPIRATORY: Clear to auscultation bilaterally. ABDOMEN: Soft, bowel sounds present, appropriate incisional tenderness to palpation. INCISIONS: Clean, dry, intact. EXTREMITIES: Free range of motion x 4. No cyanosis, edema, or clubbing. Results Result Diagram: 06/30/17 0510 06/30/17 0510 MARIAMA KINNEY MD Jun 30, 2017 10:13
--- NOTE | 2017-06-30 10:24 | PN ---
Date/Time of Note Date/Time of Note DATE: 06/30/17 TIME: 10:18 Assessment/Plan VTE Prophylaxis VTE Prophylaxis Intervention: ambulation, SCD's Lines/Catheters IV Catheter Type (from Nrs): Peripheral IV Assessment/Plan Chief Complaint/Hosp Course 1. Acute appendicitis with localized peritonitis. Status post laparoscopic appendectomy. - cont abx and pain mgmt - advance diet as tolerated 2. Sepsis secondary to above and UTI - cont abx - f/u future results 3. UTI - cont abx. f/u urine cx result 4. Hypertension. Patient has been on LELO inhibitors prior and was off treatment due to adverse effects. -Nephrology on board and we will follow recommendation on antihypertensives. For now, patient will be treated with PRN hydralazine. 5. Acute kidney injury, likely multifactorial with dehydration/sepsis/possible contrast induced. Renal function improving gradually. -We will continue to monitor, avoid nephrotoxins and follow with nephrology recommendations. DVT prophylaxis: SCD/ambulation PUD prophylaxis: Pepcid Plan: Continue postoperative management per surgery recommendations. Follow-up with nephrology's recommendation. Follow-up urine culture. Once test results are back and cleared from consultants, discharge planning on possibly Augmentin. Case discussed with Dr. Gurrola. Problems: Subjective 24 Hr Interval Summary Free Text/Dictation Patient had low-grade fevers. Status post laparoscopic appendectomy. Exam/Review of Systems Vital Signs Vitals Vital Signs Date Time Temp Pulse Resp B/P Pulse Ox O2 Delivery O2 Flow Rate FiO2 06/30/17 07:59 98.6 83 20 138/97 97 06/29/17 19:50 Room Air Intake and Output 06/29/17 06/29/17 06/30/17 15:00 23:00 07:00 Intake Total 1500 ml 800 ml Output Total 5 ml 800 ml Balance 1495 ml 0 ml Exam General: Young female, in mild to moderate pain postoperatively. HEENT: Normocephalic, Atraumatic, No laceration or hematoma; Eyes: PEERL, Conjunctiva clear, Anicteric sclera Neck: Supple without any lymphadenopathy, nontender, no JVD, no carotid bruits, trachea midline, no thyromegaly Cardiac: S1, S2 auscultated, regular rhythm and rate, no mumurs or gallop Pulmonary: Normal respiratory effort. Chest clear to auscultation bilaterally, no adventitious breath sounds GI: Laparoscopic incision site intact. Abdomen normal to inspection. Soft, non tender, non- distended, no masses, no rebound tenderness or guarding. Bowel sounds active on all four quadrants Genitourinary: Deferred Extremities: No cyanosis, clubbing, or edema. Pulses [2+] bilaterally. Full ROM on all four extremities. No focal weakness appreciated. Neurologic: Alert to person, place, time, and situation. Affect appropriate, intact sensation. Skin: Clean,dry, and intact. No ecchymosis, no rashes, or lesions Results Result Diagram: 06/30/17 0510 06/30/17 0510 Results 24 hrs Laboratory Tests Test 06/29/17 13:28 06/29/17 13:50 06/30/17 05:10 Urine Color YELLOW Urine Clarity CLOUDY A Urine pH 6.0 Urine Specific [place] 1.020 Urine Ketones NEGATIVE Urine Nitrite NEGATIVE Urine Bilirubin NEGATIVE Urine Urobilinogen NEGATIVE Urine Leukocyte Esterase 1+ H Urine Microscopic RBC 4 Urine Microscopic WBC 22 H Urine Squamous Epithelial Cells MANY A Urine Bacteria FEW A Urine Hemoglobin 2+ H Urine Glucose NEGATIVE Urine Total Protein 2+ H White Blood Count 15.3 H 11.0 #H Red Blood Count 4.53 3.92 L Hemoglobin 12.6 11.2 L Hematocrit 38.4 33.4 L Mean Corpuscular Volume 84.8 85.2 Mean Corpuscular Hemoglobin 27.8 L 28.6 L Mean Corpuscular Hemoglobin Concent 32.8 33.5 Red Cell Distribution Width 12.7 13.3 Platelet Count 189 157 Mean Platelet Volume 10.6 H 10.4 Neutrophils % 85.5 H 84.4 H Lymphocytes % 5.5 L 8.3 L Monocytes % 8.3 6.8 Eosinophils % 0.1 0.0 Basophils % 0.1 0.2 Nucleated Red Blood Cells % 0.0 0.0 Neutrophils # 13.1 H 9.3 H Lymphocytes # 0.8 0.9 Monocytes # 1.3 H 0.8 Eosinophils # 0.0 0.0 Basophils # 0.0 0.0 Nucleated Red Blood Cells # 0.0 0.0 Sodium Level 143 139 Potassium Level 3.8 3.7 Chloride Level 100 99 Carbon Dioxide Level 26 24 Anion Gap 21 H 20 H Blood Urea Nitrogen 15 10 Creatinine 1.27 H 1.22 H Glucose Level 97 123 Calcium Level 9.4 8.5 Total Bilirubin 0.5 Direct Bilirubin 0.00 Indirect Bilirubin 0.5 Aspartate Amino Transf (AST/SGOT) 19 Alanine Aminotransferase (ALT/SGPT) 22 Alkaline Phosphatase 78 Total Protein 8.7 H Albumin 4.8 Globulin 3.90 H Albumin/Globulin Ratio 1.23 Lipase 26 Medications Medications Current Medications Ampicillin Sodium/ Sulbactam Sodium (Unasyn 3gm/NS (Pmx)) 100 ml @ 200 mls/hr Q6H IVPB Last administered on 06/30/17 09:56; Admin Dose 200 MLS/HR; Start 06/29 at 21:00; Stop 06/30/17 at 20:59 Morphine Sulfate (morphine) 2 mg Q4 PRN IV PAIN LEVEL 6-10 Last administered on 06/29/17 20:51; Admin Dose 2 MG; Start 06/29/17 at 19:30 Acetaminophen/ Hydrocodone Bitart ([place] (5/325)) 1 tab Q6H PRN PO PAIN LEVEL 6 -10; Start 06/29/17 at 19:30 Ketorolac Tromethamine (Toradol) 30 mg Q6H PRN IV PAIN; Start 06/29/17 at 19:30 ; Stop 07/02/17 at 19:29; Status Future Hold Acetaminophen (Tylenol Tab) 650 mg Q6H PRN PO PAIN AND OR ELEVATED TEMP Last administered on 06/30/17 01:18; Admin Dose 650 MG; Start 06/29/17 at 19:30 Ibuprofen (Motrin) 600 mg Q6H PRN PO PAIN LEVEL 1-5; Start 06/29/17 at 19:30; Status Future Hold Ondansetron HCl (Zofran Inj) 4 mg Q6H PRN IV NAUSEA AND/OR VOMITING; Start 06/29 at 19:30 Docusate Sodium (Colace) 100 mg BID PO Last administered on 06/30/17 09:56; Admin Dose 100 MG; Start 06/29/17 at 21:00 Acetaminophen/ Hydrocodone Bitart 2 tab 2 tab Q4H PRN PO MODERATE PAIN LEVEL 4- 6 Last administered on 06/30/17 10:04; Admin Dose 2 TAB; Start 06/29/17 at 19:30 Dextrose/Sodium Chloride (D5-1/2ns) 1,000 ml @ 125 mls/hr Q8H IV Last administered on 06/30/17t 07:18; Admin Dose 125 MLS/HR; Start 06/29/17 at 19:30 KATLYN HUTTON NP Jun 30, 2017 10:24
[2017-06-30] MEDS ORDERED: hydrALAzine 20 MG INJ IV PRN (10:30)
[2017-06-30 10:44] LABS: ADD UMIC YES; UR ASCORBIC ACID NEGATIVE (NEGATIVE); UR BACTERIA FEW /HPF (NONE SEEN); UR BILIRUBIN (Dip) NEGATIVE (NEGATIVE); UR BLOOD (Dip) 2+ mg/dL (NEGATIVE); UR CLARITY CLEAR (CLEAR); UR COLOR STRAW (YELLOW); UR GLUCOSE (Dip) NEGATIVE (NEGATIVE); UR KETONES (Dip) NEGATIVE (NEGATIVE); UR LEUKOCYTE ESTERASE (Dip) TRACE Leu/ul (NEGATIVE); UR NITRITE (Dip) NEGATIVE (NEGATIVE); UR RBC 4 /HPF (0-5); UR SPECIFIC GRAVITY (Dip) 1.011 (1.003-1.030); UR SQUAMOUS EPITHELIAL CELL FEW /HPF (FEW); UR TOTAL PROTEIN (Dip) NEGATIVE (NEGATIVE); UR UROBILINOGEN (Dip) NEGATIVE (NEGATIVE)
--- NOTE | 2017-06-30 10:49 | RADRPT ---
PROCEDURE: Renal US. CLINICAL INDICATION: Acute kidney injury. TECHNIQUE: Multiple sonographic images of the kidneys and urinary bladder were obtained. The imag es were reviewed on a PACS workstation. COMPARISON: CT scan of the abdomen and pelvis dated 06/29/2017. FINDINGS: The right kidney measures 6.5 cm. The left kidney measures 10.7 cm. The right kidney is smaller than the left kidney. There is no solid renal mass. There are small benign right renal cysts with the largest measuring 1 .0 cm. There is no hydronephrosis. There is no renal calculus. Renal parenchymal thickness is normal bilaterally. Both kidneys are hyperechoic consistent with medical renal disease. The perirenal regions are normal with no fluid collection or mass. The urinary bladder is unremarkable. IMPRESSION: 1. Atrophic right kidney. 2. Small benign right renal cysts. 3. Bilateral hyperechoic kidneys consistent with medical renal disease. 4. No hydronephrosis. 5. Otherwise normal renal ultrasound. RPTAT: QQ .Tommy Jarquin MD, MD Date Time Electronically viewed and signed by .Tommy Jarquin MD, MD on 06/30/2017 10:49 .R/
[2017-06-30 13:37] VITALS: BP 136/92; RESP 18
[2017-06-30 20:06] VITALS: BP 150/98; RESP 20
[2017-07-01] MEDS: DEXTROSE 5%-0.45% NACL 1,000 ML IV SCH ×2 (00:54→11:30)
[2017-07-01 02:22] VITALS: BP 134/84; RESP 20
[2017-07-01 06:28] LABS: BASOPHILS % 0.2 % (0.0-2.0); EOSINOPHILS # 0.1 10^3/ul (0.0-0.5); EOSINOPHILS % 1.9 % (0.0-7.0); HEMATOCRIT 31.4 % (37.0-47.0); HEMOGLOBIN 10.3 g/dl (12.0-16.0); LYMPHOCYTES % 17.1 % (18.0-55.0); MEAN CORPUSCULAR HEMOGLOBIN 28.5 pg (29.0-33.0); MEAN CORPUSCULAR HGB CONC 32.8 g/dl (32.0-37.0); MEAN CORPUSCULAR VOLUME 86.7 fl (72.0-104.0); MEAN PLATELET VOLUME 10.5 fl (7.4-10.4); MONOCYTE # 0.4 10^3/ul (0.3-0.9); MONOCYTES % 7.4 % (0.0-13.0); NEUTROPHIL # 4.2 10^3/ul (1.6-7.5); NEUTROPHILS % 73.4 % (30.0-74.0); PLATELET COUNT 149 10^3/UL (140-415); RED BLOOD COUNT 3.62 10^6/ul (4.20-5.40); RED CELL DISTRIBUTION WIDTH 13.1 % (11.5-14.5); WHITE BLOOD COUNT 5.7 10^3/ul (4.8-10.8)
[2017-07-01 06:52] LABS: CALCIUM 8.7 mg/dl (8.4-10.2); CREATININE 1.1 mg/dl (0.44-1.00); MAGNESIUM 1.9 mg/dl (1.7-2.5); PHOSPHORUS 3.8 mg/dl (2.5-4.9); POTASSIUM 3.8 mmol/L (3.5-5.1)
--- NOTE | 2017-07-01 07:15 | CONS ---
DATE OF ADMISSION: 06/29/2017 DATE OF CONSULTATION: 06/30/2017 Nephrology Consultation REASON FOR CONSULTATION: Acute kidney injury, CKD. REQUESTING PHYSICIAN: Kaushik Baires MD HISTORY OF PRESENT ILLNESS: This is a 21-year-old female with a past medical history of hypertension and a history of chronic kidney disease secondary to presumed hypertension per patient, who presents to [facility] with complaints of abdominal pain x2 days. The patient in the emergency room had a CT of the abdomen with IV contrast. The patient was found to have findings consistent with appendicitis. The patient's CT scan also showed atrophic right kidney. The patient underwent emergent laparoscopic and was admitted to [facility] for evaluation. In terms of patient's renal history, the patient states she has underlying CKD due to longstanding hypertension. She does not know what her baseline creatinine or eGFR is. The patient states that she has been noncompliant with her blood pressure medications as they do not make her feel well. The patient denies any rashes, any hematuria or hemoptysis. PAST MEDICAL HISTORY: History of hypertension, history of chronic kidney disease. PAST SURGICAL HISTORY: None. ALLERGIES: NONE. FAMILY HISTORY: No family history of heart disease. SOCIAL HISTORY: Does not drink, smoke, or do drugs. Patient's medications have been reviewed. PHYSICAL EXAMINATION: VITAL SIGNS: Blood pressure 138/97, respirations 20, pulse 83, temperature 98.6. HEENT: Head is normocephalic. NECK: Supple. HEART: Regular rate. LUNGS: Diminished breath sounds at the bases. ABDOMEN: Soft, nontender to palpation. Positive laparoscopic wound. EXTREMITIES: Negative for clubbing, cyanosis, or edema. DERMATOLOGIC: No rashes. MUSCULOSKELETAL: No joint effusion. NEUROLOGIC: No change in exam. The patient's medications have been reviewed. LABORATORY: Sodium 139, potassium 3.7, chloride 99. BUN 10, creatinine 1.22. White count 9.0, hemoglobin 9.2, hematocrit 33.4; platelet count is 157. ASSESSMENT AND PLAN: This is a 21-year-old female who presents with: 1. Nonoliguric acute kidney injury on top of chronic kidney disease with unknown baseline creatinine. Etiology of acute kidney injury is likely secondary to hemodynamics, questionable contrast-induced nephropathy. The patient did receive iodinated contrast on a CT scan. The patient's renal function has improved with IV hydration. Plan at this point is to check a renal ultrasound. Will check a urinalysis, urine electrolytes. Would continue gentle IV hydration, continue supportive care, and renally dose all medications for nephrotoxins. The patient is currently on nonsteroidal antiinflammatories and those will be held as well. 2. Chronic kidney disease. Underlying etiology is presumed to be secondary to hypertension, possible renovascular disease. Plan is to check a renal ultrasound, as stated above. Will check urine electrolytes. Will quantify the patient's proteinuria. Will continue to treat acute kidney injury as stated above. Otherwise recommend disease factor modification. 3. Hypertension. Continue current medical management. Would defer LELO inhibitor at this time. 4. Acute appendicitis status post laparoscopic . 5. Possible urinary tract infection. Continue current antibiotic regimen. Thank you so much for this interesting consult. It will be a pleasure to follow patient with you throughout the hospital course. Dictated By: Dusty Salas DO /[email or web address] /Document#: [id number]
[2017-07-01 08:15] VITALS: BP 144/97; RESP 18
--- NOTE | 2017-07-01 09:13 | PDOCDIS ---
Discharge Instructions CONDITION Patient Condition: Stable HOME CARE INSTRUCTIONS: Diet Instructions: Regular FOLLOW UP/APPOINTMENTS Follow-up Plan 1.Follow up with primary care physician in 1 week 2. Follow-up with outpatient child support agent. If you don't have one please let someone know, we can give you resources that may help you pick one. You may also call your insurance company to assign one to you. Review your medication list with your nurse before leaving and if you need new prescriptions please let your nurse know. I may have made changes to your home medications or given you new prescriptions, please let your primary doctor know as well. Stay compliant with your medications and report any side effects to your PCP or pharmacist. Return to the ER if you have any concerns and cannot reach your doctors or call your insurance company, they usually have a nurse that can help you. 3. Call 911 or go to the nearest emergency room if experiencing loss of consciousness, dizziness, chest pain, shortness of breath, vomiting/abdominal pain, speech difficulties, motor weakness or any unusual symptoms. KALTYN HUTTON NP Jul 01, 2017 09:13
[2017-07-01] MEDS ORDERED: AMLO5TAB4 PO (09:18)
[2017-07-01] MEDS ORDERED: HYDR-906 PO (09:18)
[2017-07-01] MEDS ORDERED: AMOX1TAB10 PO (09:18)
[2017-07-01] MEDS: DOCUSATE SODIUM 100 MG CAP PO SCH (09:20)
--- NOTE | 2017-07-01 09:28 | DS ---
Date/Time of Note Date/Time of Note DATE: 07/01/17 TIME: 09:25 Discharge Summary Admission/Discharge Info Admit Date/Time Jun 29, 2017 at 17:04 Discharge Date/Time Discharge Diagnosis 1. Acute appendicitis with localized peritonitis. Status post laparoscopic appendectomy. 2. Status post sepsis secondary to above and UTI 3. UTI 4. Hypertension. 5. Chronic kidney disease Hx of Present Illness This is a 21 yo female with hx of HTN who presented to ER c/o abd pain x 2. She is now s/p Laparoscopic appendectomy and post-op diagnosis is Acute appendicitis with localized peritonitis. Except occasional pain, pt is feeling well. Denied chest pain or SOB. . Hospital Course This is a 21-year-old female with a past medical history of hypertension, who was off treatment for hypertension due to adverse effects of medication, presented to the emergency room with a 2 day duration of right lower quadrant abdominal pain. Initial workup was consistent with acute appendicitis complicated with peritonitis which was confirmed via CT scan. She was also positive for UTI. She was also in sepsis. Patient was also noted to have some renal impairment. She was admitted. Patient was kept n.p.o., IV fluids and broad-spectrum antibiotics. On 06/29/2017, patient had undergone laparoscopic appendectomy by surgery team. Patient tolerated postoperative course well. Her pain was under control. There was no further fever or other signs of infection. During the course of hospitalization, Patient was also evaluated by for chronic kidney disease. In regards to hypertension, the recommendation was to start patient on low-dose Norvasc with outpatient nephrology follow-up. Case management was consulted for providing resources for finding an outpatient safe deposit attendant. Patient was also instructed to go to [facility] if she is unable to get a safe deposit attendant to see her as outpatient. Her labs and vital signs remained stable. At this time, patient is medically stable for discharge. Disposition: Patient will be discharged home today. She was instructed to follow-up by primary care and safe deposit attendant. Patient was given prescription for new medications. Patient verbalized discharge instructions. Condition at time of discharge is stable. Approximately 60 minutes was spent in coordinating the discharge on this patient. Case discussed with Dr. Gurrola. Home Meds Active Scripts Amlodipine Besylate* (Norvasc*) 5 Mg Tablet, 5 MG PO DAILY, #30 TAB Prov:KATLYN HUTTON NP 07/01/17 Hydrocodone/Acetaminophen ([place] 5-325 Tablet) 1 Each Tablet, 1 EACH PO Q6 for PAIN, #30 TAB Prov:KATLYN HUTTON V. [employer]ALL THREAD MACHINE TENDER 07/01/17 Amoxicillin/Potassium Clav (Amox-Clav 875-125 mg Tablet) 875-125 mg Tab, 1 TAB PO BID, #20 TAB Prov:KATLYN HUTTON V. [employer]ALL THREAD MACHINE TENDER 07/01/17 Discontinued Reported Medications Enalapril Maleate* (Enalapril Maleate*) 5 Mg Tablet, 5 MG PO BID 07/05/13 Follow-up Plan HOME CARE INSTRUCTIONS: Diet Instructions: Regular FOLLOW UP/APPOINTMENTS Follow-up Plan 1.Follow up with primary care physician in 1 week 2. Follow-up with outpatient safe deposit attendant. If you don't have one please let someone know, we can give you resources that may help you pick one. You may also call your insurance company to assign one to you. Review your medication list with your nurse before leaving and if you need new prescriptions please let your nurse know. I may have made changes to your home medications or given you new prescriptions, please let your primary doctor know as well. Stay compliant with your medications and report any side effects to your PCP or pharmacist. Return to the ER if you have any concerns and cannot reach your doctors or call your insurance company, they usually have a nurse that can help you. 3. Call 911 or go to the nearest emergency room if experiencing loss of consciousness, dizziness, chest pain, shortness of breath, vomiting/abdominal pain, speech difficulties, motor weakness or any unusual symptoms. Primary Care Provider Bo Anderson Pending Labs Laboratory Tests Test 06/30/17 10:00 07/01/17 05:53 Urine Color STRAW (YELLOW) Urine Clarity CLEAR (CLEAR) Urine pH 7.0 (5.0-9.0) Urine Specific Tiro 1.011 (1.003-1.030) Urine Ketones NEGATIVEmg/dL (NEGATIVE) Urine Nitrite NEGATIVEmg/dL (NEGATIVE) Urine Bilirubin NEGATIVEmg/dL (NEGATIVE) Urine Urobilinogen NEGATIVEmg/dL (NEGATIVE) Urine Leukocyte Esterase TRACELeu/ul (NEGATIVE) Urine Microscopic RBC 4/HPF (0-5) Urine Microscopic WBC 2/HPF (0-5) Urine Squamous Epithelial Cells FEW/HPF (FEW) Urine Bacteria FEW/HPF (NONE SEEN) Urine Hemoglobin 2+mg/dL (NEGATIVE) Urine Random Creatinine 28.02mg/dl (20-320) Urine Random Sodium 63mmol/L (30-90) Urine Glucose NEGATIVEmg/dL (NEGATIVE) Urine Total Protein 19.0mg/dl (0.0-11.9) White Blood Count 5.710^3/ul (4.8-10.8) Red Blood Count 3.6210^6/ul (4.20-5.40) Hemoglobin 10.3g/dl (12.0-16.0) Hematocrit 31.4% (37.0-47.0) Mean Corpuscular Volume 86.7fl (72.0-104.0) Mean Corpuscular Hemoglobin 28.5pg (29.0-33.0) Mean Corpuscular Hemoglobin Concent 32.8g/dl (32.0-37.0) Red Cell Distribution Width 13.1% (11.5-14.5) Platelet Count 39187^3/UL (140-415) Mean Platelet Volume 10.5fl (7.4-10.4) Neutrophils % 73.4% (30.0-74.0) Lymphocytes % 17.1% (18.0-55.0) Monocytes % 7.4% (0.0-13.0) Eosinophils % 1.9% (0.0-7.0) Basophils % 0.2% (0.0-2.0) Nucleated Red Blood Cells % 0.0/100WBC (0.0-0.0) Neutrophils # 4.210^3/ul (1.6-7.5) Lymphocytes # 1.010^3/ul (0.8-2.9) Monocytes # 0.410^3/ul (0.3-0.9) Eosinophils # 0.110^3/ul (0.0-0.5) Basophils # 0.010^3/ul (0.0-0.1) Nucleated Red Blood Cells # 0.010^3/ul (0.0-0.0) Sodium Level 143mmol/L (135-144) Potassium Level 3.8mmol/L (3.5-5.1) Chloride Level 104mmol/L (97-110) Carbon Dioxide Level 27mmol/L (21-31) Anion Gap 16 (8-16) Blood Urea Nitrogen 12mg/dl (7-20) Creatinine 1.10mg/dl (0.44-1.00) Glucose Level 102mg/dl (70-220) Calcium Level 8.7mg/dl (8.4-10.2) Phosphorus Level 3.8mg/dl (2.5-4.9) Magnesium Level 1.9mg/dl (1.7-2.5) KATLYN HUTTON V. [employer] TH[employer] MACHINE TENDER Jul 01, 2017 09:28
--- NOTE | 2017-07-01 10:59 | PN ---
DATE: 07/01/2017 SUBJECTIVE DATA: Patient is stable. No acute events overnight. No fevers, chills, nausea, vomiting. Patient's pain is improved. OBJECTIVE DATA: VITAL SIGNS: Blood pressure 144/97, respirations 18, pulse 66, temperature 98.2. HEENT: Head is normocephalic. NECK: Supple. HEART: Regular rate. LUNGS: Show diminished breath sounds at the base. ABDOMEN: Soft, nontender to palpation. No rebound or guarding. EXTREMITIES: Negative for clubbing, cyanosis. No edema. DERMATOLOGIC: Clean. No rashes. MUSCULOSKELETAL: No joint effusion. NEUROLOGIC: No change in exam. MEDICATIONS: Reviewed. LABORATORY AND DIAGNOSTIC DATA: Sodium 143, potassium 3.8, chloride 108, BUN 12, creatinine 1.10. White count 5.7, hemoglobin 10.2, crit 31.4, platelet count is 149. The patient's renal ultrasound shows atrophic right kidney, small right renal cyst, bilateral hyperechoic kidneys consistent with medical renal disease. ASSESSMENT AND PLAN: 1. Nonoliguric acute kidney injury on top of chronic kidney disease with unknown baseline creatinine. Etiology of acute kidney injury is secondary to hemodynamics. The patient's renal function continues to improve. At this point, continue current treatment plan and supportive care. Renally dose all meds. The patient's urinalysis shows no evidence of active sediment. The patient had proteinuria of approximately 800 mg/g creatinine, nonglomerular. 2. Chronic kidney disease. Underlying etiology is unclear. Presumed secondary to hypertensive nephrosclerosis, possible renal vascular disease. The patient's renal ultrasound shows kidneys with a right atrophic kidney. The patient needs a full evaluation including arterial ultrasounds of the renal arteries. I spoke with the patient closely, informing her to be compliant with her blood pressure medications and to follow up with a upper extremity surgeon upon discharge. 3. Hypertension. Continue current blood pressure regimen. Agree with calcium channel mathew. 4. Acute appendicitis, status post laparoscopic appendectomy. 5. Urinary tract infection. The patient is completing antibiotic course. Dictated By: Dusty Salas DO /[email or web address] /Document#: [id number]
[2017-07-01 13:36] LABS: MICROALBUMIN 2.5 mg/dL
== END 2017-07-01 14:45 | disposition home or self-care (01) | DRG 853 ==
LOC: FTE 12:27 → MS2 17:04
PROVIDERS: ADMIT Internal Medicine; ATTEND Internal Medicine
PROC: 0DTJ4ZZ Resection of Appendix, Percutaneous Endoscopic Approach (ICD-10-PCS; principal; 2017-06-29 17:30)
DX: A41.9 Sepsis, unspecified organism (principal); K35.3 Acute appendicitis with localized peritonitis; N17.9 Acute kidney failure, unspecified; N39.0 Urinary tract infection, site not specified; I16.0 Hypertensive urgency; I12.9 Hypertensive chronic kidney disease with stage 1 through stage 4 chronic kidney disease, or unspecified chronic kidney disease; N18.9 Chronic kidney disease, unspecified
CPT/HCPCS: 36415; 74176; 74177; 76775; 76830; 76856; 80048; 80053; 81001; 81003; 82043; 83690; 83735; 84100; 84155; 84300; 85025; 87086; 88304; 96374; 96375; J0295; J0696; J1170; J2250; J2270; J2405; J2710; J2795; J3010; J7030; J7040; J7042; Q9967

== ENCOUNTER 2018-05-23 21:41 | Emergency (ER) | END 2018-05-24 05:04 | disposition home or self-care (01) ==